=== PATIENT | female | born 1980 | race African-American/Black ===

== ENCOUNTER 2016-08-09 06:27 | Emergency (ER) | payer OTHER ==
[~2016-08-09] VITALS: Ht 157.5 cm; Wt 85.4 kg
[2016-08-09 07:26] LABS: HEMATOCRIT 32.2 % (36.0-46.0); MCH 28.1 PG (29.0-34.0); MEAN PLAT.VOLUME 10.9 uM^3 (9.5-12.4); PLATELET COUNT 259 K/uL (156-360); RBC DIS.WIDTH-CV 13.4 % (11.8-14.6); RBC DIS.WIDTH-SD 36.7 % (39-53); RED BLOOD COUNT 4.13 M/uL (3.80-5.20); WHITE BLOOD COUNT 8.9 K/uL (4.1-10.2)
[2016-08-09 07:38] LABS: CHLORIDE 105 mEq/L (99-109); POTASSIUM 4.1 mEq/L (3.7-5.4); SODIUM 134 mEq/L (136-147)
[2016-08-09 07:41] LABS: GLUCOSE 125 mg/dL (70-99)
[2016-08-09 07:42] LABS: ANION GAP 8 MEQ/L (2-14)
[2016-08-09 07:43] LABS: TOTAL BILIRUBIN 0.3 mg/dL (0.0-1.0)
[2016-08-09 07:44] LABS: ALKALINE PHOSPHATASE 58 IU/L (3-129); GFR ESTIMATE (CALCULATED) > 59 mL/min/
[2016-08-09 07:45] LABS: UREA NITROGEN (BUN) 7 mg/dL (9-23)
[2016-08-09 07:50] LABS: PROTHROMBIN TIME 9.7 (9.2-11.2); PTT 28.3 (25-32)
[2016-08-09 08:31] LABS: ADD MIUA? YES; BILIRUBIN NEGATIVE; BLOOD NEGATIVE; COLOR YELLOW ((YELLOW)); GLUCOSE (STRIP) NEGATIVE; KETONES NEGATIVE; LEUKOCYTES NEGATIVE; NITRITE NEGATIVE; PROTEIN (STRIP) NEGATIVE; SPECIFIC GRAVITY 1.012 (1.000-1.030); UROBILINOGEN 0.2 MG/DL (0.2-1.0)
[2016-08-09 08:38] LABS: BACTERIA RARE /HPF; EPITHELIAL CELLS 1+ /HPF; MUCUS TRACE /LPF; RED BLOOD CELLS 0-5 /HPF (0-5); WHITE BLOOD CELLS 0-5 /HPF (0-5)
[2016-08-09 12:31] VITALS: BP 116/88
== END 2016-08-09 12:31 | disposition home or self-care (01) ==
LOC: EME 06:27
PROVIDERS: Physician Assistant Medical
DX: O26.892 Other specified pregnancy related conditions, second trimester (principal); G43.909 Migraine, unspecified, not intractable, without status migrainosus; Z87.891 Personal history of nicotine dependence
CPT/HCPCS: 80053; 81003; 85027; 85610; 85730; 99281; 99285; J1100; J2765; J7030

== ENCOUNTER 2016-09-17 12:39 | Inpatient (IN) | payer OTHER ==
[~2016-09-17] VITALS: Ht 157.5 cm; Wt 88.0 kg
[2016-09-17] VITALS (15 sets, daily range): BP systolic 105–134; BP diastolic 58–82
[2016-09-17] MEDS ORDERED: PRENATAL TABLE1 EAC3 PO (13:01)
[2016-09-17] MEDS ORDERED: COLACE100 MG PO (13:01)
[2016-09-17] MEDS ORDERED: REMERON30 M2 PO (13:03)
[2016-09-17 14:03] LABS: ADD MIUA? NO; BILIRUBIN NEGATIVE; BLOOD NEGATIVE; COLOR YELLOW ((YELLOW)); GLUCOSE (STRIP) >=500; KETONES 20; LEUKOCYTES NEGATIVE; NITRITE NEGATIVE; PROTEIN (STRIP) NEGATIVE; SPECIFIC GRAVITY 1.024 (1.000-1.030); UCUL ADDED? NO; UROBILINOGEN 0.2 MG/DL (0.2-1.0)
[2016-09-17 14:29] LABS: AMPHETAMINES QUANT VALUE 0 NG/ML; BARBITUATES QUANT VALUE 0 NG/ML; BENZODIAZEPINES QUANT VALUE 0 NG/ML; BENZODIAZEPINES, URINE SCREEN Negative (200 ng/mL); MARIJUANA QUANT VALUE 0 NG/ML; OPIATES QUANTITATIVE VALUE 0 NG/ML; PHENCYCLIDINE QUANT VALUE 0 NG/ML
[2016-09-17 17:29] LABS: MCH 26.7 PG (29.0-34.0); MCV 78.5 FL (83-99); MEAN PLAT.VOLUME 12.2 uM^3 (9.5-12.4); PLATELET COUNT 264 K/uL (156-360); RBC DIS.WIDTH-CV 13.9 % (11.8-14.6); RBC DIS.WIDTH-SD 39.3 % (39-53); RED BLOOD COUNT 4.46 M/uL (3.80-5.20); WHITE BLOOD COUNT 6.5 K/uL (4.1-10.2)
[2016-09-17 17:36] LABS: Estimated Average Glucose 186 mg/dL (70-123)
[2016-09-17 18:07] LABS: ANION GAP 17 MEQ/L (2-14); CHLORIDE 98 MEQ/L (99-109); SAMPLE HEMOLYSIS CHECK 0; SAMPLE ICTERIC CHECK 0; SAMPLE LIPEMIA CHECK 0; SODIUM 131 MEQ/L (136-147); TOTAL BILIRUBIN 0.5 MG/DL (0.0-1.0)
[2016-09-17 18:13] LABS: HEMOGLOBIN A1c (GLYCOHEMOGLOB) 8.1 % HGB (Below 5.7)
[2016-09-17 18:23] LABS: ALKALINE PHOSPHATASE 89 IU/L (3-129); GFR ESTIMATE (CALCULATED) > 59 mL/min/; UREA NITROGEN (BUN) 7 mg/dL (9-23)
[2016-09-17 18:24] LABS: GLUCOSE 415 mg/dL (70-99)
[2016-09-17 23:40] LABS: POINT-OF-CARE METER ID UU14188576
[2016-09-18] VITALS (20 sets, daily range): BP systolic 99–133; BP diastolic 54–76
[2016-09-18 00:43] LABS: POINT-OF-CARE METER ID UU14188576
[2016-09-18 01:00] LABS: CHLORIDE 101 mEq/L (99-109); SODIUM 131 mEq/L (136-147)
[2016-09-18 01:02] LABS: GLUCOSE 325 mg/dL (70-99)
[2016-09-18 01:03] LABS: ANION GAP 13 MEQ/L (2-14)
[2016-09-18 01:05] LABS: GFR ESTIMATE (CALCULATED) > 59 mL/min/
[2016-09-18 01:06] LABS: UREA NITROGEN (BUN) 8 mg/dL (9-23)
[2016-09-18 01:40] LABS: POINT-OF-CARE METER ID UU14188576
[2016-09-18 02:29] LABS: POINT-OF-CARE METER ID UU14188576
[2016-09-18 03:43] LABS: POINT-OF-CARE METER ID UU14188576
[2016-09-18 04:21] LABS: CHLORIDE 105 mEq/L (99-109); MAGNESIUM 4.8 mg/dL (1.3-2.7); POTASSIUM 3.8 mEq/L (3.7-5.4); SODIUM 132 mEq/L (136-147)
[2016-09-18 04:23] LABS: GLUCOSE 210 mg/dL (70-99)
[2016-09-18 04:24] LABS: ANION GAP 9 MEQ/L (2-14)
[2016-09-18 04:27] LABS: GFR ESTIMATE (CALCULATED) > 59 mL/min/; UREA NITROGEN (BUN) 7 mg/dL (9-23)
[2016-09-18 04:42] LABS: POINT-OF-CARE METER ID UU14188576
[2016-09-18 05:41] LABS: POINT-OF-CARE METER ID UU14188576
[2016-09-18 06:27] LABS: POINT-OF-CARE METER ID UU14188576
[2016-09-18 07:37] LABS: POINT-OF-CARE METER ID UU14188576; POINT-OF-CARE USER ID PUTRLG40
[2016-09-18 08:37] LABS: POINT-OF-CARE METER ID UU14188576; POINT-OF-CARE USER ID PUTRLG40
[2016-09-18 09:32] LABS: ANION GAP 10 MEQ/L (2-14); CHLORIDE 102 MEQ/L (99-109); GFR ESTIMATE (CALCULATED) > 59 mL/min/; POTASSIUM 3.8 MEQ/L (3.7-5.4); SAMPLE HEMOLYSIS CHECK 0; SAMPLE ICTERIC CHECK 0; SAMPLE LIPEMIA CHECK 0; SODIUM 134 MEQ/L (136-147); UREA NITROGEN (BUN) 7 mg/dL (9-23)
[2016-09-18 09:34] LABS: POINT-OF-CARE METER ID UU14188576; POINT-OF-CARE USER ID PUTRLG40
[2016-09-18 09:58] LABS: GLUCOSE 86 mg/dL (70-99)
[2016-09-18 10:35] LABS: POINT-OF-CARE METER ID UU14188576; POINT-OF-CARE USER ID PUTRLG40
[2016-09-18 12:07] LABS: POINT-OF-CARE METER ID UU14188576; POINT-OF-CARE USER ID PUTRLG40
[2016-09-18 12:50] LABS: ANION GAP 11 MEQ/L (2-14); CHLORIDE 102 MEQ/L (99-109); GFR ESTIMATE (CALCULATED) > 59 mL/min/; GLUCOSE 95 mg/dL (70-99); POTASSIUM 3.8 MEQ/L (3.7-5.4); SAMPLE HEMOLYSIS CHECK 0; SAMPLE ICTERIC CHECK 0; SAMPLE LIPEMIA CHECK 0; SODIUM 133 MEQ/L (136-147); UREA NITROGEN (BUN) 6 mg/dL (9-23)
[2016-09-18 13:07] LABS: POINT-OF-CARE METER ID UU14188576; POINT-OF-CARE USER ID PUTRLG40
[2016-09-18 14:08] LABS: POINT-OF-CARE METER ID UU14188576; POINT-OF-CARE USER ID PUTRLG40
[2016-09-18 14:39] LABS: POINT-OF-CARE METER ID UU14188576
[2016-09-18 14:39] LABS: POINT-OF-CARE METER ID UU14188576
[2016-09-18 14:57] LABS: POINT-OF-CARE METER ID UU14188576; POINT-OF-CARE USER ID PUTRLG40
[2016-09-18 16:43] LABS: ANION GAP 13 MEQ/L (2-14); CHLORIDE 101 MEQ/L (99-109); POTASSIUM 3.4 MEQ/L (3.7-5.4); SAMPLE HEMOLYSIS CHECK 0; SAMPLE ICTERIC CHECK 0; SAMPLE LIPEMIA CHECK 0; SODIUM 132 MEQ/L (136-147)
[2016-09-18 16:49] LABS: GFR ESTIMATE (CALCULATED) > 59 mL/min/; GLUCOSE 74 mg/dL (70-99); UREA NITROGEN (BUN) 6 mg/dL (9-23)
[2016-09-19] VITALS (7 sets, daily range): BP systolic 102–124; BP diastolic 50–82
[2016-09-19 06:02] LABS: POINT-OF-CARE METER ID UU13113692
[2016-09-19 06:02] LABS: POINT-OF-CARE METER ID UU13113692; POINT-OF-CARE USER ID PUTRLG40
[2016-09-19 06:02] LABS: POINT-OF-CARE METER ID UU13113692
[2016-09-19 07:38] LABS: ANION GAP 17 MEQ/L (2-14); CHLORIDE 100 MEQ/L (99-109); GFR ESTIMATE (CALCULATED) > 59 mL/min/; GLUCOSE 204 mg/dL (70-99); POTASSIUM 4.1 MEQ/L (3.7-5.4); SAMPLE HEMOLYSIS CHECK 0; SAMPLE ICTERIC CHECK 0; SAMPLE LIPEMIA CHECK 0; SODIUM 130 MEQ/L (136-147); UREA NITROGEN (BUN) 13 mg/dL (9-23)
[2016-09-19 08:12] LABS: BASE EXCESS -10.8 mEq/L (-3 to +3); BICARBONATE 12.4 mEq/L (22-26); CARBOXY HGB 1.7 % (0-5); COMMENTS - BLOOD GASES A+C+; METHEMOGLOBIN 1.5 % (0-1.5); PCO2 21 mm Hg (35-45); PO2 96 mm Hg (80-100); SITE RR; pH 7.38 (7.35-7.45)
[2016-09-19 08:13] LABS: DEVICE RA; TOTAL RESP RATE 26 resp/min
[2016-09-19 08:29] LABS: EOSINOPHIL (%) 0 % (0-5); HEMATOCRIT 32.2 % (36.0-46.0); IMMATURE GRANULOCYTE COUNT 0.1 K/uL; INSTRUMENT ABS NEUTROPHIL CT 5.4 K/uL; LYMPHOCYTE COUNT 1.2 K/uL (1.0-2.8); MCH 27.1 PG (29.0-34.0); MCHC 34.2 G/DL (30.0-36.0); MCV 79.3 FL (83-99); MEAN PLAT.VOLUME 12.3 uM^3 (9.5-12.4); MONOCYTE (%) 7.7 % (3-12); MONOCYTE COUNT 0.6 K/uL (0-0.8); NEUTROPHIL (%) 74.5 % (45-76); NEUTROPHIL COUNT 5.4 K/uL (1.8-6.4); PLATELET COUNT 232 K/uL (156-360); RBC DIS.WIDTH-CV 14.2 % (11.8-14.6); RBC DIS.WIDTH-SD 41.2 % (39-53); RED BLOOD COUNT 4.06 M/uL (3.80-5.20); WHITE BLOOD COUNT 7.3 K/uL (4.1-10.2)
[2016-09-19 14:54] LABS: ANION GAP 13 MEQ/L (2-14); CHLORIDE 103 MEQ/L (99-109); GFR ESTIMATE (CALCULATED) > 59 mL/min/; GLUCOSE 234 mg/dL (70-99); POTASSIUM 3.5 MEQ/L (3.7-5.4); SAMPLE HEMOLYSIS CHECK 0; SAMPLE ICTERIC CHECK 0; SAMPLE LIPEMIA CHECK 0; SODIUM 132 MEQ/L (136-147); UREA NITROGEN (BUN) 14 mg/dL (9-23)
[2016-09-19 19:41] LABS: CANDIDA DNA PROBE NEGATIVE; GARDNERELLA DNA PROBE NEGATIVE; INTERNAL CONTROL VALID? YES
[2016-09-19 22:57] LABS: ANION GAP 11 MEQ/L (2-14); CHLORIDE 103 MEQ/L (99-109); POTASSIUM 3.6 MEQ/L (3.7-5.4); SAMPLE HEMOLYSIS CHECK 0; SAMPLE ICTERIC CHECK 0; SAMPLE LIPEMIA CHECK 0; SODIUM 133 MEQ/L (136-147)
[2016-09-19 23:04] LABS: GFR ESTIMATE (CALCULATED) > 59 mL/min/; GLUCOSE 238 mg/dL (70-99); UREA NITROGEN (BUN) 16 mg/dL (9-23)
[2016-09-20 02:47] VITALS: BP 118/78
[2016-09-20 07:07] VITALS: BP 110/58
[2016-09-20 07:17] LABS: ANION GAP 10 MEQ/L (2-14); CHLORIDE 108 MEQ/L (99-109); GFR ESTIMATE (CALCULATED) > 59 mL/min/; POTASSIUM 3.7 MEQ/L (3.7-5.4); SAMPLE HEMOLYSIS CHECK 0; SAMPLE ICTERIC CHECK 0; SAMPLE LIPEMIA CHECK 0; SODIUM 137 MEQ/L (136-147); TOTAL BILIRUBIN 0.4 MG/DL (0.0-1.0); UREA NITROGEN (BUN) 12 mg/dL (9-23)
[2016-09-20 07:19] LABS: ALKALINE PHOSPHATASE 57 IU/L (3-129); GLUCOSE 119 mg/dL (70-99)
[2016-09-20 11:06] VITALS: BP 131/85
[2016-09-20 13:29] LABS: ANION GAP 10 MEQ/L (2-14); CHLORIDE 108 MEQ/L (99-109); GFR ESTIMATE (CALCULATED) > 59 mL/min/; GLUCOSE 135 mg/dL (70-99); POTASSIUM 3.6 MEQ/L (3.7-5.4); SAMPLE HEMOLYSIS CHECK 0; SAMPLE ICTERIC CHECK 0; SAMPLE LIPEMIA CHECK 0; SODIUM 138 MEQ/L (136-147); UREA NITROGEN (BUN) 13 mg/dL (9-23)
[2016-09-20 15:33] VITALS: BP 121/71
[2016-09-20 20:02] VITALS: BP 124/79
[2016-09-20 23:55] VITALS: BP 127/79
[2016-09-21] VITALS (7 sets, daily range): BP systolic 112–146; BP diastolic 73–85
[2016-09-21 07:40] LABS: POINT-OF-CARE METER ID UU13113692
[2016-09-21 07:40] LABS: POINT-OF-CARE METER ID UU13113692
[2016-09-21 07:40] LABS: POINT-OF-CARE METER ID UU13113692
[2016-09-21 07:40] LABS: POINT-OF-CARE METER ID UU13113692; POINT-OF-CARE USER ID 607291304
[2016-09-21 07:40] LABS: POINT-OF-CARE METER ID UU13113692; POINT-OF-CARE USER ID 607291304
[2016-09-21 07:40] LABS: POINT-OF-CARE METER ID UU13113692
[2016-09-21 07:40] LABS: POINT-OF-CARE METER ID UU13113692; POINT-OF-CARE USER ID 607291304
[2016-09-21 07:40] LABS: POINT-OF-CARE METER ID UU13113692
[2016-09-21 07:40] LABS: POINT-OF-CARE METER ID UU13113692
[2016-09-21 07:40] LABS: POINT-OF-CARE METER ID UU13113692
[2016-09-21 07:40] LABS: POINT-OF-CARE METER ID UU13113692
[2016-09-21 07:40] LABS: POINT-OF-CARE METER ID UU13113692; POINT-OF-CARE USER ID 607291304
[2016-09-21 07:40] LABS: POINT-OF-CARE METER ID UU13113692; POINT-OF-CARE USER ID 607291304
[2016-09-21 07:40] LABS: POINT-OF-CARE METER ID UU13113692; POINT-OF-CARE USER ID 607291304
[2016-09-21 07:40] LABS: POINT-OF-CARE METER ID UU13113692; POINT-OF-CARE USER ID 607291304
[2016-09-21 07:40] LABS: POINT-OF-CARE METER ID UU13113692
[2016-09-21 07:40] LABS: POINT-OF-CARE METER ID UU13113692; POINT-OF-CARE USER ID 607291304
[2016-09-21 07:40] LABS: POINT-OF-CARE METER ID UU13113692; POINT-OF-CARE USER ID 607291304
[2016-09-21 07:40] LABS: POINT-OF-CARE METER ID UU13113692; POINT-OF-CARE USER ID 607291304
[2016-09-21 07:40] LABS: POINT-OF-CARE METER ID UU13113692
[2016-09-21 07:40] LABS: POINT-OF-CARE METER ID UU13113692; POINT-OF-CARE USER ID 607291304
[2016-09-21 10:27] LABS: POINT-OF-CARE METER ID UU13113692
[2016-09-21 10:27] LABS: POINT-OF-CARE METER ID UU13113692
[2016-09-21 12:15] LABS: POINT-OF-CARE METER ID UU13113692
[2016-09-21 12:21] LABS: ANION GAP 8 MEQ/L (2-14); CHLORIDE 108 MEQ/L (99-109); POTASSIUM 4.3 MEQ/L (3.7-5.4); SAMPLE HEMOLYSIS CHECK 0; SAMPLE ICTERIC CHECK 0; SAMPLE LIPEMIA CHECK 0; SODIUM 138 MEQ/L (136-147)
[2016-09-21 12:27] LABS: GFR ESTIMATE (CALCULATED) > 59 mL/min/; GLUCOSE 125 mg/dL (70-99); UREA NITROGEN (BUN) 11 mg/dL (9-23)
[2016-09-21 15:17] LABS: POINT-OF-CARE METER ID UU13113801
[2016-09-21 17:17] LABS: POINT-OF-CARE METER ID UU13113692
[2016-09-22 01:22] LABS: POINT-OF-CARE METER ID UU13113692
[2016-09-22 01:22] LABS: POINT-OF-CARE METER ID UU13113692
[2016-09-22 03:17] VITALS: BP 127/79
[2016-09-22 03:42] LABS: POINT-OF-CARE METER ID UU13113692
[2016-09-22 07:45] LABS: POINT-OF-CARE METER ID UU13113692
[2016-09-22 09:14] VITALS: BP 116/70
[2016-09-22] MEDS ORDERED: LEVEMIR100 UNIT/2 SC ×2 (15:42→15:43)
[2016-09-22 19:37] LABS: POINT-OF-CARE METER ID UU13113692
[2016-09-22 19:37] LABS: POINT-OF-CARE METER ID UU13113692
[2016-09-22 19:37] LABS: POINT-OF-CARE METER ID UU13113692
[2016-09-22 19:37] LABS: POINT-OF-CARE METER ID UU13113692
== END 2016-09-22 17:43 | disposition home or self-care (01) | DRG 781 ==
LOC: LDRP-OP 12:39 → 2WEST 12:40 → LDRP-OP 12-02 11:31
PROVIDERS: Advanced Practice Midwife; Internal Medicine Endocrinology, Diabetes & Metabolism; Obstetrics & Gynecology
DX: O24.013 Pre-existing type 1 diabetes mellitus, in pregnancy, third trimester (principal); E10.10 Type 1 diabetes mellitus with ketoacidosis without coma; O60.03 Preterm labor without delivery, third trimester; O99.323 Drug use complicating pregnancy, third trimester; F33.9 Major depressive disorder, recurrent, unspecified; O98.313 Other infections with a predominantly sexual mode of transmission complicating pregnancy, third trimester; Z3A.33 33 weeks gestation of pregnancy; O34.211 Maternal care for low transverse scar from previous cesarean delivery; A60.09 Herpesviral infection of other urogenital tract; O40 Polyhydramnios; O36.63X1 Maternal care for excessive fetal growth, third trimester, fetus 1; O99.283 Endocrine, nutritional and metabolic diseases complicating pregnancy, third trimester; O99.613 Diseases of the digestive system complicating pregnancy, third trimester; F17.210 Nicotine dependence, cigarettes, uncomplicated; E83.51 Hypocalcemia; R47.02 Dysphasia; K21.9 Gastro-esophageal reflux disease without esophagitis; F14.21 Cocaine dependence, in remission; R68.81 Early satiety; R20.9 Unspecified disturbances of skin sensation; O99.333 Smoking (tobacco) complicating pregnancy, third trimester; E66.9 Obesity, unspecified; O99.343 Other mental disorders complicating pregnancy, third trimester; O99.213 Obesity complicating pregnancy, third trimester; O09.513 Supervision of elderly primigravida, third trimester; Z68.35 Body mass index [BMI] 35.0-35.9, adult; Z88.6 Allergy status to analgesic agent; Z79.4 Long term (current) use of insulin; Z80.1 Family history of malignant neoplasm of trachea, bronchus and lung; Z83.3 Family history of diabetes mellitus
CPT/HCPCS: 36600; 76818; 80048; 80048 91; 80053; 80306 90; 81003; 82010; 82731; 82803; 82948; 83036; 83735; 84100; 84681 90; 85025; 85027; 86850; 86900; 86901; 87081; 87086; 87480; 87510; 87660; G0378; J0702; J1815; J3105; J3475; J3480; J7030; J7050; J7120; S0028

== ENCOUNTER 2016-09-26 22:33 | Inpatient (IN) | payer OTHER ==
[~2016-09-26] VITALS: Ht 157.5 cm; Wt 99.0 kg
[~2016-09-26 22:33] MED LIST: COLACE100 MG PO; LEVEMIR100 UNIT/2 SC; PRENATAL TABLE1 EAC3 PO; REMERON30 M2 PO
[2016-09-26 23:34] VITALS: BP 123/78
[2016-09-27] VITALS (9 sets, daily range): BP systolic 100–131; BP diastolic 57–84
[2016-09-27] LABS: EOSINOPHIL (%) 2.2 % (0-5); EOSINOPHIL COUNT 0.2 K/uL (0-0.3); HEMATOCRIT 31.8 % (36.0-46.0); IMMATURE GRANULOCYTE (%) 1.6 % (0.0-0.7); IMMATURE GRANULOCYTE COUNT 0.1 K/uL; INSTRUMENT ABS NEUTROPHIL CT 4.2 K/uL; LYMPHOCYTE COUNT 1.5 K/uL (1.0-2.8); MCHC 33.6 G/DL (30.0-36.0); MCV 80.1 FL (83-99); MEAN PLAT.VOLUME 11.5 uM^3 (9.5-12.4); MONOCYTE (%) 13.1 % (3-12); MONOCYTE COUNT 0.9 K/uL (0-0.8); NEUTROPHIL (%) 60.8 % (45-76); NEUTROPHIL COUNT 4.2 K/uL (1.8-6.4); PLATELET COUNT 248 K/uL (156-360); RBC DIS.WIDTH-CV 14.5 % (11.8-14.6); RBC DIS.WIDTH-SD 42.2 % (39-53); RED BLOOD COUNT 3.97 M/uL (3.80-5.20); WHITE BLOOD COUNT 6.9 K/uL (4.1-10.2)
[2016-09-27 00:10] LABS: CHLORIDE 104 mEq/L (99-109); SODIUM 137 mEq/L (136-147)
[2016-09-27 00:13] LABS: GLUCOSE 188 mg/dL (70-99)
[2016-09-27 00:14] LABS: ANION GAP 11 MEQ/L (2-14)
[2016-09-27 00:15] LABS: TOTAL BILIRUBIN 0.2 mg/dL (0.0-1.0)
[2016-09-27 00:16] LABS: ALKALINE PHOSPHATASE 60 IU/L (3-129); GFR ESTIMATE (CALCULATED) > 59 mL/min/
[2016-09-27 00:17] LABS: UREA NITROGEN (BUN) 13 mg/dL (9-23)
[2016-09-27 02:16] LABS: POINT-OF-CARE METER ID UU13113692
[2016-09-27 04:14] LABS: POINT-OF-CARE METER ID UU13113692
[2016-09-27 05:13] LABS: AMPHETAMINES QUANT VALUE 0 NG/ML; BARBITUATES QUANT VALUE 0 NG/ML; BENZODIAZEPINES QUANT VALUE 0 NG/ML; BENZODIAZEPINES, URINE SCREEN Negative (200 ng/mL); MARIJUANA QUANT VALUE 0 NG/ML; OPIATES QUANTITATIVE VALUE 0 NG/ML; PHENCYCLIDINE QUANT VALUE 0 NG/ML
[2016-09-27 14:22] LABS: POINT-OF-CARE METER ID UU13113675; POINT-OF-CARE USER ID 515036437
[2016-09-27 17:01] LABS: POINT-OF-CARE METER ID UU13113692
[2016-09-27 17:01] LABS: POINT-OF-CARE METER ID UU13113692
[2016-09-27 17:01] LABS: POINT-OF-CARE METER ID UU13113692
[2016-09-27 17:01] LABS: POINT-OF-CARE METER ID UU13113692
[2016-09-27 18:26] LABS: POINT-OF-CARE METER ID UU13113692
[2016-09-27 22:50] LABS: POINT-OF-CARE METER ID UU13113692
[2016-09-28] VITALS (7 sets, daily range): BP systolic 103–132; BP diastolic 64–79
[2016-09-28 02:35] LABS: POINT-OF-CARE METER ID UU13113692
[2016-09-28 07:43] LABS: POINT-OF-CARE METER ID UU13113692
[2016-09-28 07:45] LABS: EOSINOPHIL (%) 0.2 % (0-5); HEMATOCRIT 35.3 % (36.0-46.0); IMMATURE GRANULOCYTE (%) 0.7 % (0.0-0.7); IMMATURE GRANULOCYTE COUNT 0.1 K/uL; INSTRUMENT ABS NEUTROPHIL CT 6.7 K/uL; LYMPHOCYTE COUNT 1.5 K/uL (1.0-2.8); MCH 26.6 PG (29.0-34.0); MCHC 32.6 G/DL (30.0-36.0); MCV 81.5 FL (83-99); MEAN PLAT.VOLUME 11.5 uM^3 (9.5-12.4); MONOCYTE (%) 12.4 % (3-12); MONOCYTE COUNT 1.2 K/uL (0-0.8); NEUTROPHIL COUNT 6.7 K/uL (1.8-6.4); PLATELET COUNT 215 K/uL (156-360); RBC DIS.WIDTH-CV 14.4 % (11.8-14.6); RBC DIS.WIDTH-SD 42.2 % (39-53); RED BLOOD COUNT 4.33 M/uL (3.80-5.20)
[2016-09-28 07:48] LABS: WHITE BLOOD COUNT 9.4 K/uL (4.1-10.2)
[2016-09-28 10:31] LABS: POINT-OF-CARE METER ID UU13113692
[2016-09-28 14:52] LABS: POINT-OF-CARE METER ID UU13113692
[2016-09-28 16:48] LABS: POINT-OF-CARE METER ID UU13113692
[2016-09-28 22:52] LABS: POINT-OF-CARE METER ID UU13113692; POINT-OF-CARE USER ID STWJCF31
[2016-09-29 03:10] VITALS: BP 119/73
[2016-09-29 03:19] VITALS: BP 119/73
[2016-09-29 03:34] LABS: POINT-OF-CARE METER ID UU13113801; POINT-OF-CARE USER ID STWJCF31
[2016-09-29 06:09] LABS: POINT-OF-CARE METER ID UU13113801; POINT-OF-CARE USER ID STWJCF31
[2016-09-29 07:15] VITALS: BP 123/73
[2016-09-29] MEDS ORDERED: ENDOCET 5-3251 EACH PO (09:27)
[2016-09-29 09:39] LABS: POINT-OF-CARE METER ID UU13113801
[2016-09-29 13:04] LABS: POINT-OF-CARE METER ID UU13113801
[2016-09-29 18:34] LABS: POINT-OF-CARE METER ID UU13113801
[2016-09-29 22:22] LABS: POINT-OF-CARE METER ID UU13113801; POINT-OF-CARE USER ID STWJCF31
[2016-09-29 23:21] VITALS: BP 131/79
[2016-09-30 03:38] LABS: POINT-OF-CARE METER ID UU13113801; POINT-OF-CARE USER ID STWJCF31
[2016-09-30 05:48] VITALS: BP 131/79
[2016-09-30 06:32] LABS: POINT-OF-CARE METER ID UU13113801; POINT-OF-CARE USER ID STWJCF31
[2016-09-30 07:05] VITALS: BP 125/79
[2016-09-30] MEDS ORDERED: OXYCODONE-APAP1 EACH PO (09:17)
[2016-09-30] MEDS ORDERED: NAPROSYN250 MG PO (09:17)
[2016-09-30] MEDS ORDERED: PRENATAL VITAM1 EAC6 PO (09:22)
[2016-09-30] MEDS ORDERED: LEVEMIR100 UNIT/2 SC ×2 (09:22)
[2016-09-30] MEDS ORDERED: GLUCAGEN1 MG IM/SC (09:22)
== END 2016-09-30 12:37 | disposition home or self-care (01) | DRG 765 ==
LOC: LDRP-OP 22:33 → 2WEST 22:34
PROVIDERS: Advanced Practice Midwife; Obstetrics & Gynecology
DX: O76 Abnormality in fetal heart rate and rhythm complicating labor and delivery (principal); O34.211 Maternal care for low transverse scar from previous cesarean delivery; O60.14X0 Preterm labor third trimester with preterm delivery third trimester, not applicable or unspecified; O40.3XX0 Polyhydramnios, third trimester, not applicable or unspecified; O32.1XX0 Maternal care for breech presentation, not applicable or unspecified; Z37.0 Single live birth; Z3A.35 35 weeks gestation of pregnancy; O99.214 Obesity complicating childbirth; E66.9 Obesity, unspecified; Z68.39 Body mass index [BMI] 39.0-39.9, adult; O24.013 Pre-existing type 1 diabetes mellitus, in pregnancy, third trimester; E10.9 Type 1 diabetes mellitus without complications; Z79.4 Long term (current) use of insulin; O99.344 Other mental disorders complicating childbirth; F32.9 Major depressive disorder, single episode, unspecified; O99.89 Other specified diseases and conditions complicating pregnancy, childbirth and the puerperium; E55.9 Vitamin D deficiency, unspecified; Z87.891 Personal history of nicotine dependence
CPT/HCPCS: 76805; 76818; 80053; 80306 90; 82948; 85025; 86900; 86901; 88302; 88307; G0378; J0690; J1100; J1200; J1815; J2250; J2270; J2274; J2405; J2765; J7060; J7120

== ENCOUNTER 2017-03-12 14:40 | Emergency (ER) | payer OTHER ==
[~2017-03-12] VITALS: Ht 157.5 cm; Wt 85.7 kg
[~2017-03-12 14:40] MED LIST changes: +ENDOCET 5-3251 EACH PO; +GLUCAGEN1 MG IM/SC; +NAPROSYN250 MG PO; +OXYCODONE-APAP1 EACH PO; +PRENATAL VITAM1 EAC6 PO
[2017-03-12 17:13] LABS: HEMATOCRIT 37.2 % (36.0-46.0); MCH 28.9 PG (29.0-34.0); MCHC 35.8 G/DL (30.0-36.0); MCV 80.7 FL (83-99); RBC DIS.WIDTH-CV 12.4 % (11.8-14.6); RBC DIS.WIDTH-SD 36.1 % (39-53); RED BLOOD COUNT 4.61 M/uL (3.80-5.20); WHITE BLOOD COUNT 5.2 K/uL (4.1-10.2)
[2017-03-12 17:14] LABS: CHLORIDE 96 mEq/L (99-109); POTASSIUM 3.9 mEq/L (3.7-5.4); SODIUM 133 mEq/L (136-147)
[2017-03-12 17:17] LABS: ANION GAP 11 MEQ/L (2-14)
[2017-03-12 17:20] LABS: GFR ESTIMATE (CALCULATED) 59 mL/min/; UREA NITROGEN (BUN) 13 mg/dL (9-23)
[2017-03-12 17:21] LABS: GLUCOSE 434 mg/dL (70-99)
[2017-03-12 17:28] LABS: QUANTITATIVE HCG < 4.0 MIU/ML
[2017-03-12 17:39] LABS: POINT-OF-CARE METER ID UU13113702
[2017-03-12 17:47] LABS: HEMATOLOGY COMMENT 1 SN; MEAN PLAT.VOLUME 11.4 uM^3 (9.5-12.4); PLAT.SUFFICIENCY ADEQUATE; PLATELET COUNT 320 K/uL (156-360)
[2017-03-12 17:51] LABS: ADD MIUA? YES; BILIRUBIN NEGATIVE; BLOOD LARGE; COLOR STRAW ((YELLOW)); GLUCOSE (STRIP) >=500; KETONES 5; LEUKOCYTES NEGATIVE; NITRITE NEGATIVE; PROTEIN (STRIP) NEGATIVE; SPECIFIC GRAVITY 1.024 (1.000-1.030); UROBILINOGEN 0.2 MG/DL (0.2-1.0)
[2017-03-12 17:53] LABS: BACTERIA RARE /HPF; EPITHELIAL CELLS RARE /HPF; MUCUS TRACE /LPF; RED BLOOD CELLS 0-5 /HPF (0-5); UCUL ADDED? NO; WHITE BLOOD CELLS 0-5 /HPF (0-5)
[2017-03-12 18:00] LABS: POINT-OF-CARE METER ID UU13113778
[2017-03-12 19:50] LABS: POINT-OF-CARE METER ID UU13113702
[2017-03-12] MEDS ORDERED: GLUMETZA500 M1 PO (20:01)
[2017-03-12 20:44] VITALS: BP 116/68
== END 2017-03-12 20:46 | disposition home or self-care (01) ==
LOC: EME 14:40
PROVIDERS: Emergency Medicine
DX: E11.65 Type 2 diabetes mellitus with hyperglycemia (principal); Z79.84 Long term (current) use of oral hypoglycemic drugs; Z91.14 Patient's other noncompliance with medication regimen; F17.200 Nicotine dependence, unspecified, uncomplicated
CPT/HCPCS: 80048; 81003; 82010; 82948; 84702; 85027; 99281; 99284; J7030

== ENCOUNTER 2017-07-29 19:00 | Inpatient (IN) | payer OTHER ==
[~2017-07-29] VITALS: Ht 157.5 cm; Wt 73.4 kg
[~2017-07-29 19:00] MED LIST changes: +GLUMETZA500 M1 PO
[2017-07-29 19:27] LABS: APPEARANCE SL.HAZY ((CLEAR)); BILIRUBIN NEGATIVE; BLOOD LARGE; COLOR YELLOW ((YELLOW)); GLUCOSE (STRIP) >=500; KETONES 20; LEUKOCYTES TRACE; NITRITE NEGATIVE; PROTEIN (STRIP) 30; SPECIFIC GRAVITY 1.024 (1.000-1.030); UROBILINOGEN 0.2 MG/DL (0.2-1.0)
[2017-07-29 19:29] LABS: HEMATOCRIT 45.2 % (36.0-46.0); HEMOGLOBIN 15.7 G/DL (11.9-15.5); MCH 27.4 PG (29.0-34.0); MCHC 34.7 G/DL (30.0-36.0); MCV 78.9 FL (83-99); PLATELET COUNT 445 K/uL (156-360); RBC DIS.WIDTH-CV 13.7 % (11.8-14.6); RBC DIS.WIDTH-SD 39.3 % (39-53); RED BLOOD COUNT 5.73 M/uL (3.80-5.20)
[2017-07-29 19:31] LABS: BACTERIA NONE SEEN /HPF; EPITHELIAL CELLS 2+ /HPF; MUCUS TRACE /LPF; RED BLOOD CELLS 0-5 /HPF (0-5); UCUL ADDED? YES
[2017-07-29 19:41] LABS: ALBUMIN 4.8 g/dL (3.2-4.8); CHLORIDE 99 mEq/L (99-109); POTASSIUM 4.2 mEq/L (3.7-5.4); SODIUM 130 mEq/L (136-147)
[2017-07-29 19:43] LABS: TOTAL PROTEIN 8.3 g/dL (6.4-8.3)
[2017-07-29 19:45] LABS: TOTAL BILIRUBIN 0.5 mg/dL (0.0-1.0)
[2017-07-29 19:47] LABS: ALKALINE PHOSPHATASE 82 IU/L (3-129); CREATININE 1.7 mg/dL (0.6-1.3); GFR ESTIMATE (CALCULATED) 43 mL/min/
[2017-07-29 19:48] LABS: UREA NITROGEN (BUN) 8 mg/dL (9-23)
[2017-07-29 19:49] LABS: AST (GOT) 11 IU/L (2-34)
[2017-07-29 19:50] LABS: ALT (GPT) 13 IU/L (3-49)
[2017-07-29 19:51] LABS: GLUCOSE 643 mg/dL (70-99)
[2017-07-29 19:56] LABS: QUANTITATIVE HCG < 4.0 MIU/ML
[2017-07-29 22:18] LABS: BASE EXCESS -9.1 mEq/L (-3 to +3); BICARBONATE 16.2 mEq/L (22-26); CARBOXY HGB 1.7 % (0-5); COMMENTS - BLOOD GASES C+; METHEMOGLOBIN 0.9 % (0-1.5); PCO2 33 mm Hg (35-45); PO2 97 mm Hg (80-100); SITE LR
[2017-07-29 22:19] LABS: FI02 21 %
[2017-07-30 01:09] LABS: CHLORIDE 108 mEq/L (99-109); POTASSIUM 3.9 mEq/L (3.7-5.4); SODIUM 136 mEq/L (136-147)
[2017-07-30 01:11] LABS: GLUCOSE 356 mg/dL (70-99)
[2017-07-30 01:15] LABS: UREA NITROGEN (BUN) 7 mg/dL (9-23)
[2017-07-30 01:16] LABS: GFR ESTIMATE (CALCULATED) > 59 mL/min/
[2017-07-30 05:27] VITALS: BP 99/74
[2017-07-30 07:49] VITALS: BP 104/60
[2017-07-30 08:50] LABS: CHLORIDE 107 MEQ/L (99-109); CREATININE 0.7 MG/DL (0.6-1.3); GFR ESTIMATE (CALCULATED) > 59 mL/min/; GLUCOSE 296 mg/dL (70-99); POTASSIUM 3.9 MEQ/L (3.7-5.4); SODIUM 139 MEQ/L (136-147); UREA NITROGEN (BUN) 5 mg/dL (9-23)
[2017-07-30] MEDS ORDERED: BASAGLAR K100 UNIT/1 SC (08:51)
[2017-07-30] MEDS ORDERED: NOVOLOG PE100 UNITS/ SC (08:54)
[2017-07-30] MEDS ORDERED: BENTYL10 MG PO (08:54)
[2017-07-30] MEDS ORDERED: OMEPRAZOLE20 MG PO (08:55)
[2017-07-30] MEDS ORDERED: METFORMIN HCL500 MG PO (08:55)
[2017-07-30 11:31] VITALS: BP 103/56
[2017-07-30 15:19] VITALS: BP 104/59
[2017-07-30 19:44] VITALS: BP 109/62
[2017-07-30 23:07] VITALS: BP 98/53
[2017-07-31 03:36] VITALS: BP 115/58
[2017-07-31 08:00] VITALS: BP 101/64
[2017-07-31] MEDS ORDERED: CEFTIN500 MG PO (10:56)
[2017-07-31 12:09] VITALS: BP 108/70
== END 2017-07-31 12:50 | disposition home or self-care (01) | DRG 638 ==
LOC: EME 19:00 → EDOF 07-30 03:57 → 2EAST 07-30 03:57 → ENRESERV 07-30 03:59 → 2EASTP 07-30 05:16 → ENRESERV 07-30 18:00 → 2EAST 07-30 20:50 → ENRESERV 07-30 22:11 → 2EAST 07-30 22:11
PROVIDERS: Emergency Medicine; Hospitalist; Internal Medicine
DX: E11.10 Type 2 diabetes mellitus with ketoacidosis without coma (principal); N17.9 Acute kidney failure, unspecified; E87.1 Hypo-osmolality and hyponatremia; E86.0 Dehydration; N39.0 Urinary tract infection, site not specified; F17.210 Nicotine dependence, cigarettes, uncomplicated; Z79.4 Long term (current) use of insulin; Z91.14 Patient's other noncompliance with medication regimen; Z86.32 Personal history of gestational diabetes
CPT/HCPCS: 36600; 71046; 80048; 80048 91; 80053; 81003; 82803; 82948; 84702; 85027; 87086; 99281; 99285; J0696; J1650; J1815; J7030

== ENCOUNTER 2017-10-16 11:26 | Emergency (ER) | payer OTHER ==
[~2017-10-16] VITALS: Ht 157.5 cm; Wt 63.0 kg
[~2017-10-16 11:26] MED LIST changes: +BASAGLAR K100 UNIT/1 SC; +BENTYL10 MG PO; +CEFTIN500 MG PO; +METFORMIN HCL500 MG PO; +NOVOLOG PE100 UNITS/ SC; +OMEPRAZOLE20 MG PO
[2017-10-16 12:41] LABS: HEMATOCRIT 40.7 % (36.0-46.0); HEMOGLOBIN 14.4 G/DL (11.9-15.5); MCH 27.9 PG (29.0-34.0); MCHC 35.4 G/DL (30.0-36.0); MCV 78.7 FL (83-99); RBC DIS.WIDTH-CV 13.2 % (11.8-14.6); RBC DIS.WIDTH-SD 37.9 % (39-53); RED BLOOD COUNT 5.17 M/uL (3.80-5.20); WHITE BLOOD COUNT 4.4 K/uL (4.1-10.2)
[2017-10-16 12:42] LABS: CARBON DIOXIDE (BICARBONATE) 36.7 MEQ/L (20-31)
[2017-10-16 12:50] LABS: ALBUMIN 4.1 g/dL (3.2-4.8); CHLORIDE 88 mEq/L (99-109); POTASSIUM 3.5 mEq/L (3.7-5.4); SODIUM 130 mEq/L (136-147)
[2017-10-16 12:51] LABS: MAGNESIUM 1.7 mg/dL (1.3-2.7)
[2017-10-16 12:53] LABS: TOTAL PROTEIN 6.9 g/dL (6.4-8.3)
[2017-10-16 12:54] LABS: TOTAL BILIRUBIN 0.4 mg/dL (0.0-1.0)
[2017-10-16 12:56] LABS: ALKALINE PHOSPHATASE 100 IU/L (3-129); CREATININE 1.3 mg/dL (0.6-1.3); GFR ESTIMATE (CALCULATED) 59 mL/min/; GLUCOSE 701 mg/dL (70-99); PHOSPHORUS 4.3 mg/dL (2.5-4.9)
[2017-10-16 12:57] LABS: UREA NITROGEN (BUN) 7 mg/dL (9-23)
[2017-10-16 12:58] LABS: AST (GOT) 10 IU/L (2-34)
[2017-10-16 12:59] LABS: ALT (GPT) 9 IU/L (3-49); LIPASE 15 U/L (1.0-51.0)
[2017-10-16 13:02] LABS: TROP-I INTERPRETATION NEGATIVE; TROPONIN-I < 0.01 ng/mL (0.0-0.30)
[2017-10-16 13:36] LABS: PLATELET COUNT 266 K/uL (156-360)
[2017-10-16 15:05] LABS: APPEARANCE CLEAR ((CLEAR)); BILIRUBIN NEGATIVE; BLOOD NEGATIVE; COLOR STRAW ((YELLOW)); GLUCOSE (STRIP) >=500; KETONES 5; LEUKOCYTES NEGATIVE; NITRITE NEGATIVE; PROTEIN (STRIP) NEGATIVE; SPECIFIC GRAVITY 1.027 (1.000-1.030); UROBILINOGEN 0.2 MG/DL (0.2-1.0)
[2017-10-16] MEDS ORDERED: DIFLUCAN150 MG PO (16:19)
[2017-10-16] MEDS ORDERED: BACTRIM,SEPT1 TABLET PO (16:20)
[2017-10-16 16:40] VITALS: BP 98/64
== END 2017-10-16 16:52 | disposition home or self-care (01) ==
LOC: EME 11:26
PROVIDERS: Emergency Medicine
PROC: 0H98XZZ Drainage of Buttock Skin, External Approach (ICD-10-PCS; principal; 2017-10-16)
PROC: 0H9FXZZ Drainage of Right Hand Skin, External Approach (ICD-10-PCS; principal; 2017-10-16)
DX: L03.011 Cellulitis of right finger (principal); L02.31 Cutaneous abscess of buttock; L73.9 Follicular disorder, unspecified; E10.65 Type 1 diabetes mellitus with hyperglycemia; Z79.4 Long term (current) use of insulin; N89.8 Other specified noninflammatory disorders of vagina; F17.200 Nicotine dependence, unspecified, uncomplicated
CPT/HCPCS: 80053; 81003; 82803; 82948; 83605; 83690; 83735; 83930; 84100; 84484; 85027; 87040; 93005; 99281; 99285; J7030